=== PATIENT | female | born 1930 | race American Indian/Alaskan Native ===

== ENCOUNTER 2017-02-10 11:41 | Observation (INO) | payer MEDICARE, OTHER ==
[2017-02-10 11:56] VITALS: BMI 23.4
[2017-02-10] MEDS ORDERED: Sodium Chloride 0.9% 1,000 ML IV SCH (12:00)
[2017-02-10 12:15] LABS: URINE BILIRUBIN NEGATIVE (NEGATIVE); URINE BLOOD TRACE-INTACT (NEGATIVE); URINE GLUCOSE (UA) NEGATIVE (NEGATIVE); URINE LEUKOCYTE ESTERASE NEGATIVE Leu/uL (NEGATIVE); URINE NITRATE NEGATIVE (NEGATIVE); URINE PROTEIN NEGATIVE mg/dL (<30 mg/dL); URINE UROBILINOGEN 0.2 E.U./dL (<1 E.U./dL)
[2017-02-10 12:20] LABS: URINE APPEARANCE CLEAR (CLEAR); URINE COLOR STRAW (YELLOW)
[2017-02-10 12:24] LABS: URINE BACTERIA NEG (NEG); URINE EPITHELIAL CELLS 0 - 2 /hpf (0-5); URINE RBC 0 - 2 /hpf (0-2); URINE WBC NEGATIVE /hpf (0-6)
[2017-02-10 12:32] LABS: BASO # 0.02 K/mm3 (0.0-2.0); BASO % 0.4 % (0.0-3.0); EOS # 0.1 (0.0-0.7); EOS % 1.9 % (1.5-5.0); GRAN # 2.58 (1.4-6.5); GRAN % 48.4 % (50.0-68.0); LYMPH # 2.2 (1.2-3.4); MEAN CELL VOLUME 83.4 fL (80.0-105.0); MEAN CORPUSCULAR HEMOGLOBIN 27.3 pg (25.0-35.0); MEAN CORPUSCULAR HGB CONC 32.7 g/dl (31.0-37.0); MEAN PLATELET VOLUME 10.8 fl (7.0-11.0); MONO # 0.4 (0.1-0.6); MONO % 8.3 % (1.0-6.0); PLATELET COUNT 215 10^3/uL (120.0-450.0); RBC 4.77 10^6/uL (3.5-6.1); RED CELL DISTRIBUTION WIDTH 15.1 % (11.5-14.5); WHITE BLOOD COUNT 5.3 10^3/ul (4.5-11.0)
--- NOTE | 2017-02-10 12:37 | ED PDOC ---
Arrival/HPI - General Time Seen by Provider: 02/10/17 11:57 Historian: Patient - History of Present Illness Narrative History of Present Illness (Text): 02/10/17 12:19 A 86 year old female, whose past medical history includes hypertension and glaucoma, presents to the emergency department complaining of dizziness since this morning. Patient states that she has been experiencing intermittent dizziness at home since earlier this morning, and was afraid that she would fall down due to it. She lives alone at her home and recently to [place]. Patient notes she has been coughing, but denies of any fever, chills, nausea, vomiting, diarrhea, abdominal pain, chest pain, palpitations, shortness of breath, headaches, or any other complaints. PMD: Dr. Reeves Information Systems Consultant: Dr. Molina Time/Duration: Prior to Arrival Symptom Onset: Gradual Symptom Course: Intermittent Activities at Onset: Rest, Light Context: Home Past Medical History - Provider Review Nursing Documentation Reviewed: Yes - Cardiac Hx Cardiac Disorders: Yes Hx Hypertension: Yes - Neurological Hx Transient Ischemic Attacks (TIA): Yes - Musculoskeletal/Rheumatological Hx Falls: No - Psychiatric Hx Substance Use: No - Surgical History Hx Section: Yes - Anesthesia Hx Anesthesia: Yes Hx Anesthesia Reactions: No Hx Malignant Hyperthermia: No Family/Social History - Physician Review Nursing Documentation Reviewed: Yes Family/Social History: No Known Family HX Smoking Status: Former Smoker Hx Alcohol Use: Yes (Socially) Hx Substance Use: No Allergies/Home Meds Allergies/Adverse Reactions: Allergies No Known Allergies Allergy (Verified 02/10/17 16:54) Home Medications: Home Meds Medication Instructions Recorded Confirmed Valsartan [Diovan] 160 mg PO DAILY 02/10/16 02/10/17 Review of Systems - Physician Review All systems were reviewed & negative as marked: Yes - Review of Systems Constitutional: absent: Fevers, Night Sweats Respiratory: Cough. absent: SOB Cardiovascular: absent: Chest Pain, Palpitations Gastrointestinal: absent: Abdominal Pain, Diarrhea, Nausea, Vomiting Neurological: Dizziness (since this morning). absent: Headache Physical Exam Vital Signs Reviewed: Yes Vital Signs Temp Pulse Resp BP Pulse Ox 02/10/17 15:41 71 18 152/61 H 98 02/10/17 15:14 69 18 163/71 H 98 02/10/17 13:31 68 18 165/75 H 98 02/10/17 12:40 71 18 171/79 H 98 02/10/17 11:55 97.9 F 75 18 177/80 H 96 Temperature: Afebrile Blood Pressure: Hypertensive Pulse: Regular Respiratory Rate: Normal Appearance: Positive for: Well-Appearing Pain Distress: None Mental Status: Positive for: Alert and Oriented X 3 - Systems Exam Head: Present: Atraumatic, Normocephalic Pupils: Present: PERRL Extroacular Muscles: Present: EOMI Conjunctiva: Present: Normal Mouth: Present: Moist Mucous Membranes. No: Dry Neck: Present: Normal Range of Motion Respiratory/Chest: Present: Clear to Auscultation, Good Air Exchange. No: Respiratory Distress, Accessory Muscle Use Cardiovascular: Present: Regular Rate and Rhythm, Other (premature ventricular contractions) Abdomen: Present: Normal Bowel Sounds. No: Tenderness, Distention, Peritoneal Signs Back: Present: Normal Inspection Upper Extremity: Present: Normal Inspection. No: Cyanosis, Edema Lower Extremity: Present: Normal Inspection. No: Edema Neurological: Present: GCS=15, CN II-XII Intact, Speech Normal Skin: Present: Warm, Dry, Normal Color. No: Rashes Psychiatric: Present: Alert, Oriented x 3, Normal Insight, Normal Concentration Medical Decision Making ED Course and Treatment: 02/10/17 12:25 Impression: 86 year old female with dizziness. Physical exam shows premature ventricular contractions and moist mucous membranes. Plan: -- EKG -- Head CT -- Chest X-ray -- Labs -- Antivert -- IV Fluids -- Reassess and disposition Prior Visits: Notes and results from previous visits were reviewed. Patient was last seen in the emergency department on 03/16/2016 complaining of dark discoloration and tightness to her face prior to arrival. Patient was discharged home. Progress Notes: 02/10/2017 12:23 EKG: Ordered, reviewed, and independently interpreted the EKG. Rate : 76 BPM Rhythm : NSR Interpretation : Right bundle branch block, normal access with PAC Comparison : No previous EKG for comparison. 02/10/2017 12:[address] FINDINGS: HEMORRHAGE: No intracranial hemorrhage. BRAIN: Diffuse atrophy with prominence of the ventricles and sulci noted. No mass effect or edema. Intracranial atherosclerosis. 5 mm calcification noted along the right aspect of the anterior falx, favored to represent dural base calcification however incidental meningioma cannot be entirely excluded. Scattered periventricular and subcortical white matter hypodensities, which are nonspecific, but often seen with chronic microvascular ischemic disease. Please note that MRI with diffusion imaging is more sensitive in the detection of acute ischemic event. VENTRICLES: No hydrocephalus. CALVARIUM: Unremarkable. PARANASAL SINUSES: Unremarkable as visualized. No significant inflammatory changes. MASTOID AIR CELLS: Unremarkable as visualized. No inflammatory changes. OTHER FINDINGS: Postsurgical changes of the right globe. IMPRESSION: Generalized atrophy. Nonspecific white matter changes. 5 mm calcification noted along the right aspect of the anterior falx, favored to represent dural base calcification however incidental meningioma cannot be entirely excluded. 02/10/2017 12:58 Chest X-Ray FINDINGS: LUNGS: No active pulmonary disease. PLEURA: No significant pleural effusion identified, no pneumothorax apparent. CARDIOVASCULAR: Normal. OSSEOUS STRUCTURES: No significant abnormalities. VISUALIZED UPPER ABDOMEN: Normal. OTHER FINDINGS: None. IMPRESSION: No active disease. 02/10/17 13:[address] Reeves. Recommends patient be put into ED Observation. - Lab Interpretations Lab Results: 02/10/17 12:15 02/10/17 12:15 Lab Results 02/10/17 12:15: Sodium 139, Potassium 4.1, Chloride 98, Carbon Dioxide 32, Anion Gap 13, BUN 13, Creatinine 0.7, Est GFR ( Amer) > 60, Est GFR (Non- Af Amer) > 60, Random Glucose 81, Calcium 9.5, Magnesium 2.0, Total Bilirubin 0.6, AST 22, ALT 22, Alkaline Phosphatase 76, Lactate Dehydrogenase 489, Total Creatine Kinase 57, Troponin I < 0.01, Total Protein 7.3, Albumin 4.2, Globulin 3.0, Albumin/Globulin Ratio 1.4 02/10/17 12:15: PT 10.8, INR 1.00, APTT 25.1 02/10/17 12:15: WBC 5.3, RBC 4.77, Hgb 13.0, Hct 39.8, MCV 83.4, MCH 27.3, MCHC 32.7, RDW 15.1 H, Plt Count 215, MPV 10.8, Gran % 48.4 L, Lymph % (Auto) 41.0 H , [place] % (Auto) 8.3 H, Eos % (Auto) 1.9, Baso % (Auto) 0.4, Gran # 2.58, Lymph # 2.2, [place] # 0.4, Eos # 0.1, Baso # 0.02 02/10/17 12:00: Urine Color Straw, Urine Appearance Clear, Urine pH 7.0, Ur Specific [place] 1.010, Urine Protein Negative, Urine Glucose (UA) Negative, Urine Ketones Negative, Urine Blood Trace-intact H, Urine Nitrate Negative, Urine Bilirubin Negative, Urine Urobilinogen 0.2, Ur Leukocyte Esterase Negative , Urine RBC 0 - 2, Urine WBC Negative, Ur Epithelial Cells 0 - 2, Urine Bacteria Neg I have reviewed the lab results: Yes - RAD Interpretation Radiology Orders: 02/10/17 11:58 HEAD W/O CONTRAST [CT] Stat CHEST PORTABLE [RAD] Stat - Medication Orders Current Medication Orders: Losartan Potassium (Cozaar) 100 mg PO DAILY RUPA Meclizine HCl (Antivert) 25 mg PO Q6 PRN PRN Reason: Dizziness Discontinued Medications Sodium Chloride (Sodium Chloride 0.9%) 1,000 mls @ 100 mls/hr IV .Q10H RUPA Last Admin: 02/10/17 12:23 Dose: 100 mls/hr Meclizine HCl (Antivert) 25 mg PO STAT STA Stop: 02/10/17 11:59 Last Admin: 02/10/17 12:23 Dose: 25 mg Pneumococcal Polyvalent Vaccine (Pneumovax 23 Vaccine) 0.5 ml IM .ONCE ONE Stop: 02/10/17 19:18 - PA / LUMBER DRIVER / Resident Statement / has reviewed & agrees with the documentation as recorded. / has examined the patient and agrees with the treatment plan. - Scribe Statement Aston Reddy Provider Scribe Attestation: All medical record entries made by the Scribe were at my direction and personally dictated by me. I have reviewed the chart and agree that the record accurately reflects my personal performance of the history, physical exam, medical decision making, and the department course for this patient. I have also personally directed, reviewed, and agree with the discharge instructions and disposition. Disposition/Present on Arrival - Present on Arrival Any Indicators Present on Arrival: No History of DVT/PE: No History of Uncontrolled Diabetes: No Urinary Catheter: No History Surgical Site Infection Following: None - Disposition Have Diagnosis and Disposition been Completed?: Yes Diagnosis: Near syncope Disposition: HOSPITALIZED Disposition Time: 14:00 Patient Plan: Observation (Remote Telemetry) Condition: STABLE
[2017-02-10 12:42] LABS: PARTIAL THROMBOPLASTIN TIME 25.1 Seconds (23.7-30.8); PROTHROMBIN TIME 10.8 Seconds (9.9-11.8)
[2017-02-10 12:43] LABS: ALB/GLOB RATIO 1.4 (1.1-1.8); ALBUMIN 4.2 g/dL (3.0-4.8); ALT/SGPT 22 U/L (7-56); AST/SGOT 22 U/L (15-39); BLOOD UREA NITROGEN 13 mg/dL (7-21); CALCIUM 9.5 mg/dL (8.4-10.5); GFR AFRICAN-AMERICAN > 60; GFR NON-AFRICAN AMERICAN > 60
[2017-02-10 12:54] LABS: TROPONIN I < 0.01 ng/mL
--- NOTE | 2017-02-10 13:09 | CT ---
PROCEDURE: CT HEAD WITHOUT CONTRAST. HISTORY: r/o ICH COMPARISON: Noncontrast head CT performed 01/28/17 TECHNIQUE: Axial computed tomography images were obtained through the head/brain without intravenous contrast. Radiation dose: Total exam DLP = 712.01 mGy-cm. This CT exam was performed using one or more of the following dose reduction techniques: Automated exposure control, adjustment of the mA and/or kV according to patient size, and/or use of iterative reconstruction technique. FINDINGS: HEMORRHAGE: No intracranial hemorrhage. BRAIN: Diffuse atrophy with prominence of the ventricles and sulci noted. No mass effect or edema. Intracranial atherosclerosis. 5 mm calcification noted along the right aspect of the anterior falx, favored to represent dural base calcification however incidental meningioma cannot be entirely excluded. Scattered periventricular and subcortical white matter hypodensities, which are nonspecific, but often seen with chronic microvascular ischemic disease. Please note that MRI with diffusion imaging is more sensitive in the detection of acute ischemic event. VENTRICLES: No hydrocephalus. CALVARIUM: Unremarkable. PARANASAL SINUSES: Unremarkable as visualized. No significant inflammatory changes. MASTOID AIR CELLS: Unremarkable as visualized. No inflammatory changes. OTHER FINDINGS: Postsurgical changes of the right globe. IMPRESSION: Generalized atrophy. Nonspecific white matter changes. 5 mm calcification noted along the right aspect of the anterior falx, favored to represent dural base calcification however incidental meningioma cannot be entirely excluded.
--- NOTE | 2017-02-10 13:14 | RAD ---
HISTORY: r/o infiltrate COMPARISON: 02/10/2016 FINDINGS: LUNGS: No active pulmonary disease. PLEURA: No significant pleural effusion identified, no pneumothorax apparent. CARDIOVASCULAR: Normal. OSSEOUS STRUCTURES: No significant abnormalities. VISUALIZED UPPER ABDOMEN: Normal. OTHER FINDINGS: None. IMPRESSION: No active disease.
--- NOTE | 2017-02-10 17:25 | CARD ---
APPROVED REPORT EKG Measurement Heart [id number] <Conclusion> Sinus rhythm with premature supraventricular complexes Right bundle branch block Abnormal ECG
[2017-02-10] MEDS ORDERED: Pneumococcal 23-Valent Vaccine IM ONE (19:17)
[2017-02-11 06:00] VITALS: TEMP 98; O2SAT 98
[2017-02-11 16:43] VITALS: BP 124/59; PULSE 59; RESP 16
--- NOTE | 2017-02-12 08:22 | HP ---
HISTORY OF PRESENT ILLNESS: This is an 86-year-old female who is coming into the hospital with complaints of dizziness. The patient had a past medical history of hypertension and glaucoma. She states she has been dizzy in the morning prior to coming into the hospital. She has been experiencing intermittent dizziness. She was afraid that she may fall. She states she lives alone. She does have a son who is fully involved in her care. The patient states that she does feel better this morning. She has no compliant of chest pain. No shortness of breath. No nausea or vomiting. No abdominal pain. No back pain. No dysuria, frequency, or nocturia. She initially had a high blood pressure in the ER, but that had improved. All of review of symptoms within normal limits except as mentioned. ALLERGIES: NO KNOWN DRUG ALLERGIES. HOME MEDICATIONS: Diovan. SOCIAL HISTORY: She is a former smoker of half pack per day but states she quit many years ago. She denies alcohol. FAMILY HISTORY: Noncontributory. PAST MEDICAL HISTORY: Hypertension and dyslipidemia. PAST SURGICAL HISTORY: Hysterectomy, x3, and bilateral cataract surgery. PHYSICAL EXAMINATION: VITAL SIGNS: Temperature is 98, pulse of 59, blood pressure 124/69, respirations 16, O2 saturation is 98%, height is 5 feet, weight is 108 pounds, BMI is 21.1. GENERAL: The patient is lying in bed comfortable, in no acute distress. HEENT: Atraumatic, normocephalic. Anicteric sclerae. Moist mucosa. No oral lesions. No ulcers. NECK: No JVD, adenopathy, thyromegaly or bruits. HEART: S1 and S2 are regular. No murmurs, rubs, or gallops. LUNGS: Clear to auscultation bilaterally. No wheezes, rales, or rhonchi. ABDOMEN: Bowel sounds are positive. Soft, nontender, and nondistended. No hepatosplenomegaly. EXTREMITIES: No cyanosis, clubbing, or edema. NEUROLOGIC: No facial asymmetry. Tongue is midline. No uvula deviation. Power is 5/5 in the upper extremity and the lower extremity. Sensation is intact. PSYCHIATRIC: Alert, awake, and oriented x3. No facial asymmetry. Tongue is midline. Good insight. Normal affect. GENITOURINARY: No CVA tenderness. VASCULAR: 2+ pulses in the carotid and pedal pulses. SKIN: No erythema. No nodules. SPINE: Normal curvature. LABORATORY DATA: There is a white count of 5.3, hemoglobin of 13, platelets count is 315. INR is 1.0. Chemistry shows sodium 139, potassium 4.1, creatinine is 0.7, albumin is 4.2. Urine shows ketones are negative, nitrites are negative, bilirubin is negative. EKG shows sinus rhythm at 76 with right bundle-branch block. QTc is 447. Chest x-ray shows no acute disease. A CT of the head done shows generalized atrophy to the 5 cm calcification noted along the right aspect of the anterior falx. May represent incidental meningioma. ASSESSMENT: 1. Dizziness, unknown etiology, resolved. 2. Hypertension. 3. Dyslipidemia. PLAN: The patient was able to ambulate well. She initially has been placed on a dose of meclizine. She was discharged home to follow up as an outpatient. CONDITION: Stable. ACTIVITIES: Increase as tolerated. I did call the patient's son and left a message and updated him regarding the patient's plan of care. Zbigniew Johnson MD
== END 2017-02-11 18:45 | disposition home or self-care (01) ==
LOC: ED 11:41 → ERH 13:15 → 2RSO 15:48
PROVIDERS: ADMIT Internal Medicine Nephrology; ATTEND Internal Medicine Nephrology
DX: I49.3 Ventricular premature depolarization (principal); R42 Dizziness and giddiness; E78.5 Hyperlipidemia, unspecified; I10 Essential (primary) hypertension; H40.9 Unspecified glaucoma; Z86.73 Personal history of transient ischemic attack (TIA), and cerebral infarction without residual deficits; Z87.891 Personal history of nicotine dependence; R40.2412 Glasgow coma scale score 13-15, at arrival to emergency department; I45.10 Unspecified right bundle-branch block; Z90.710 Acquired absence of both cervix and uterus; Z68.21 Body mass index [BMI] 21.0-21.9, adult
CPT/HCPCS: 70450; 71010; 80053; 81001; 82550; 83615; 83735; 84484; 85025; 85610; 85730; 87086; 93005; 97116; 97162; 99285; G0378; G8978; G8979; G8980; J7040

== ENCOUNTER 2018-02-03 18:50 | Observation (INO) | payer MEDICARE, OTHER ==
--- NOTE | 2018-02-03 20:02 | ED PDOC ---
Arrival/HPI - General Chief Complaint: Syncope Time Seen by Provider: 02/03/18 19:16 Historian: Patient - History of Present Illness Narrative History of Present Illness (Text): 02/03/18 19:39 87 year old female, with past medical history of hypertension and hyperlipidemia , presents to the Emergency department for evaluation of syncopal episode 2 hours prior to arrival. Patient states she was home when she experienced worsening dizziness and passed out for a brief period of time, although patient does not recall exactly how long. Patient additionally informs associated palpitations prior but currently denies any palpitation or chest pain. Patient denies any head trauma, headache, incontinence, fever, chills, nausea, vomiting , diarrhea, abdominal pain, shortness of breath or any other complaints. Patient presents to the Emergency department for medical evaluation. Time/Duration: 1-3 hours Symptom Onset: Sudden Symptom Course: Improving Activities at Onset: Light Context: Home Past Medical History - Provider Review Nursing Documentation Reviewed: Yes - Infectious Disease Hx of Infectious Diseases: None - Cardiac Hx Cardiac Disorders: Yes Hx Hypertension: Yes - Pulmonary Hx Respiratory Disorders: Yes (SMOKES 1/2 PPD QUIT) - Neurological Hx Transient Ischemic Attacks (TIA): Yes - HEENT Hx HEENT Disorder: Yes (WEARS RX GLASSES) Hx Cataracts: Yes (BILATERAL CATARACT SX) Hx Glaucoma: Yes - Renal Hx Renal Disorder: No - Endocrine/Metabolic Hx Endocrine Disorders: No - Hematological/Oncological Hx Blood Disorders: No - Integumentary Hx Dermatological Disorder: No Other/Comment: BIRTHMARK RIGHT THIGH - Musculoskeletal/Rheumatological Hx Falls: No - Gastrointestinal Hx Gastrointestinal Disorders: No - Genitourinary/Gynecological Hx Genitourinary Disorders: Yes (HYSTERECTOMY,C/S X 3) - Psychiatric Hx Psychophysiologic Disorder: No Hx Substance Use: No - Surgical History Hx Section: Yes - Anesthesia Hx Anesthesia: Yes Hx Anesthesia Reactions: No Hx Malignant Hyperthermia: No Family/Social History - Physician Review Nursing Documentation Reviewed: Yes Family/Social History: No Known Family HX Smoking Status: Former Smoker Hx Alcohol Use: Yes (Socially) Hx Substance Use: No Allergies/Home Meds Allergies/Adverse Reactions: Allergies No Known Allergies Allergy (Verified 02/10/17 16:54) Home Medications: Home Meds Medication Instructions Recorded Confirmed Diltiazem HCl [Cardizem LA] 1 cap PO DAILY 02/03/18 02/03/18 Review of Systems - Physician Review All systems were reviewed & negative as marked: Yes - Review of Systems Constitutional: absent: Fevers Respiratory: absent: SOB Cardiovascular: absent: Chest Pain Gastrointestinal: absent: Abdominal Pain, Diarrhea, Nausea, Vomiting Neurological: Dizziness, Other (Syncope). absent: Headache Physical Exam Vital Signs Reviewed: Yes Vital Signs Temp Pulse Resp BP Pulse Ox 02/04/18 00:20 82 16 135/82 98 02/03/18 22:30 82 16 133/82 98 02/03/18 19:12 98.1 F 85 18 139/81 97 Temperature: Afebrile Blood Pressure: Normal Pulse: Regular Respiratory Rate: Normal Appearance: Positive for: Well-Appearing, Non-Toxic, Comfortable Pain Distress: None Mental Status: Positive for: Alert and Oriented X 3 - Systems Exam Head: Present: Atraumatic, Normocephalic Pupils: Present: PERRL Extroacular Muscles: Present: EOMI Conjunctiva: Present: Normal Neck: Present: Normal Range of Motion Respiratory/Chest: Present: Clear to Auscultation, Good Air Exchange. No: Respiratory Distress, Accessory Muscle Use Cardiovascular: Present: Regular Rate and Rhythm, Normal S1, S2. No: Murmurs Abdomen: No: Tenderness, Distention, Peritoneal Signs Back: Present: Normal Inspection Upper Extremity: Present: Normal Inspection. No: Cyanosis, Edema Lower Extremity: Present: Normal Inspection. No: Edema Neurological: Present: GCS=15, CN II-XII Intact, Speech Normal, Motor Func Grossly Intact, Normal Sensory Function Skin: Present: Warm, Dry, Normal Color. No: Rashes Psychiatric: Present: Alert, Oriented x 3, Normal Insight, Normal Concentration Medical Decision Making ED Course and Treatment: 02/03/18 19:39 Impression: 87 year old female presents to the Emergency department s/p syncopal episode. Differential Diagnosis included but are not limited to: syncope Plan: -- CT of head -- EKG -- Labs -- Chest X-ray -- Reassess and disposition Prior Visits: Notes and results from previous visits were reviewed. Progress Notes: 02/03/18 19:30 EKG: Ordered, reviewed, and independently interpreted the EKG. Rate : 81 BPM Rhythm : NSR Interpretation : RBBB. Septal infarct. Nonspecific ST/T wave changes. 07/19/18 22:30 Chest X-ray reviewed, shows no acute processes. 02/03/18 22:56 CT Head shows: BRAIN: Hypodensity within the deep white matter consistent with chronic small vessel ischemic disease. 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 No hemorrhage. VENTRICLES: Unremarkable. No ventriculomegaly. BONES/JOINTS: Unremarkable. No acute fracture. SOFT TISSUES: Unremarkable. SINUSES: Unremarkable as visualized. No acute sinusitis. MASTOID AIR CELLS: Unremarkable as visualized. No mastoid effusion. IMPRESSION: No acute findings. Atrophy with chronic white matter changes. 02/03/18 23:[address] Johnson, who is aware and agrees with plan. Accepts pt in to his service. Pt will go to Telemetry observation for syncope. Requests Dr. Harvey and Dr. Farfan on consult. - Lab Interpretations Lab Results: 02/03/18 19:41 02/03/18 19:41 Lab Results 02/03/18 19:41: WBC 5.9, RBC 4.68, Hgb 12.7, Hct 38.7, MCV 82.7, MCH 27.1, MCHC 32.8, RDW 14.8 H, Plt Count 199, MPV 10.0 02/03/18 19:41: Sodium 141, Potassium 3.9, Chloride 101, Carbon Dioxide 30, Anion Gap 15, BUN 10, Creatinine 0.7, Est GFR ( Amer) > 60, Est GFR (Non- Af Amer) > 60, Random Glucose 82, Calcium 9.6, Total Bilirubin 0.4, AST 25, ALT 23, Alkaline Phosphatase 80, Lactate Dehydrogenase 507, Total Creatine Kinase 60 , Troponin I < 0.01, Total Protein 7.0, Albumin 4.2, Globulin 2.8, Albumin/ Globulin Ratio 1.5 02/03/18 19:41: PT 11.6, INR 1.02, APTT 30.6 I have reviewed the lab results: Yes - RAD Interpretation Radiology Orders: 02/03/18 19:39 HEAD W/O CONTRAST [CT] Stat 02/03/18 19:40 CHEST PORTABLE [RAD] Stat Top Tile Decorator: Radiologist - EKG Interpretation Interpreted by ED Physician: Yes Type: 12 lead EKG - Scribe Statement The provider has reviewed the documentation as recorded by the Scribrosalia Sainz. All medical record entries made by the Scribe were at my direction and personally dictated by me. I have reviewed the chart and agree that the record accurately reflects my personal performance of the history, physical exam, medical decision making, and the department course for this patient. I have also personally directed, reviewed, and agree with the discharge instructions and disposition. Disposition/Present on Arrival - Present on Arrival Any Indicators Present on Arrival: No History of DVT/PE: No History of Uncontrolled Diabetes: No Urinary Catheter: No History of Decub. Ulcer: No History Surgical Site Infection Following: None - Disposition Have Diagnosis and Disposition been Completed?: Yes Diagnosis: Syncope Disposition: HOSPITALIZED Disposition Time: 23:14 Patient Plan: Observation Patient Problems: Current Active Problems Problem Status Onset Syncope Acute Condition: STABLE
[2018-02-03 20:26] LABS: HEMOGLOBIN 12.7 g/dL (12.0-16.0); MEAN CELL VOLUME 82.7 fl (80.0-105.0); MEAN CORPUSCULAR HEMOGLOBIN 27.1 pg (25.0-35.0); MEAN CORPUSCULAR HGB CONC 32.8 g/dl (31.0-37.0); RBC 4.68 10^6/uL (3.5-6.1); RED CELL DISTRIBUTION WIDTH 14.8 % (11.5-14.5); WHITE BLOOD COUNT 5.9 10^3/ul (4.5-11.0)
[2018-02-03 20:32] LABS: ALB/GLOB RATIO 1.5 (1.1-1.8); ALBUMIN 4.2 g/dL (3.0-4.8); ALT/SGPT 23 U/L (7-56); AST/SGOT 25 U/L (14-36); BLOOD UREA NITROGEN 10 mg/dL (7-21); CALCIUM 9.6 mg/dL (8.4-10.5); GFR AFRICAN-AMERICAN > 60; GFR NON-AFRICAN AMERICAN > 60
[2018-02-03 20:35] LABS: INR 1.02 (0.93-1.08); PARTIAL THROMBOPLASTIN TIME 30.6 Seconds (25.1-36.5); PROTHROMBIN TIME 11.6 SECONDS (9.4-12.5)
[2018-02-03 20:44] LABS: TROPONIN I < 0.01 ng/mL
[2018-02-04 02:53] VITALS: RESP 20; BMI 33.5
[2018-02-04 06:17] VITALS: O2SAT 99
--- NOTE | 2018-02-04 08:37 | RAD ---
Date of service: 02/03/2018 HISTORY: syncope COMPARISON: 02/10/2017 FINDINGS: LUNGS: No active pulmonary disease. PLEURA: No significant pleural effusion identified, no pneumothorax apparent. CARDIOVASCULAR: Normal. OSSEOUS STRUCTURES: No significant abnormalities. VISUALIZED UPPER ABDOMEN: Normal. OTHER FINDINGS: None. IMPRESSION: No active disease.
--- NOTE | 2018-02-04 08:52 | CT ---
Date of service: 02/03/2018 PROCEDURE: CT HEAD WITHOUT CONTRAST. HISTORY: syncope COMPARISON: 02/10/2017 TECHNIQUE: Axial computed tomography images were obtained through the head/brain without intravenous contrast. Radiation dose: Total exam DLP = 735 mGy-cm. This CT exam was performed using one or more of the following dose reduction techniques: Automated exposure control, adjustment of the mA and/or kV according to patient size, and/or use of iterative reconstruction technique. FINDINGS: HEMORRHAGE: No intracranial hemorrhage. BRAIN: No mass effect or edema. Mild chronic microvascular changes. Mild atrophy VENTRICLES: Unremarkable. No hydrocephalus. CALVARIUM: Unremarkable. PARANASAL SINUSES: Unremarkable as visualized. No significant inflammatory changes. MASTOID AIR CELLS: Unremarkable as visualized. No inflammatory changes. OTHER FINDINGS: The report concurs with the preliminary [facility] report IMPRESSION: No acute intracranial findings
[2018-02-04] MEDS ORDERED: DILTIAZEM HCL PO SCH (10:00)
[2018-02-04] MEDS ORDERED: diltiaZEM 120 mg/24 Hours CD Cap PO SCH (10:00)
--- NOTE | 2018-02-04 10:08 | CP.PCM.HP ---
<Ralhp Pineda - Last Filed: 02/04/18 15:04> History of Present Illness - History of Present Illness History of Present Illness: Medicine H&P for Dr. Johnson's service - Kraig Edwin PGY3 HPI: Patient is a 87yo female with past medical history of hypertension and hyperlipidemia that presented to [facility] [place] with c/o dizziness. She reported that approximately 2 hours prior to arrival in the ED, she began experiencing dizziness and sat down on her couch feeling as though she was about to pass out. She denied loss of consciousness, tongue biting, bowel/bladder incontinence. She reported that she has had similar episodes in the past for which she was previously given meclizine. She reports being very active, going to the gym and working with a personal coach. In the ED, CXR revealed no active disease, EKG revealed NSR with RBBB and nonspecific ST-T wave changes, septal infarct (age undetermined) and head CT showed no acute intracranial abnormalities. She denied chest pain, palpitations, SOB, abdominal pain, nausea , vomiting, fever, chills, cough, focal weakness, numbness, tingling, sick contacts. 12point ROS as per above otherwise negative PMH: as stated above PSH: x3, cataract surgery allergies: NKDA Social Hx: denies tobacco, alcohol, illicit drug use Family Hx: reviewed, noncontributory PMD: Dr. Johnson Present on Admission - Present on Admission Any Indicators Present on Admission: No Past Patient History - Infectious Disease Hx of Infectious Diseases: None - Past Social History Smoking Status: Former Smoker - CARDIAC Hx Cardiac Disorders: Yes Hx Hypertension: Yes - PULMONARY Hx Respiratory Disorders: Yes (SMOKES 1/2 PPD QUIT) - NEUROLOGICAL Hx Transient Ischemic Attacks (TIA): Yes - HEENT Hx HEENT Problems: Yes (WEARS RX GLASSES) Hx Cataracts: Yes (BILATERAL CATARACT SX) Hx Glaucoma: Yes - RENAL Hx Chronic Kidney Disease: No - ENDOCRINE/METABOLIC Hx Endocrine Disorders: No - HEMATOLOGICAL/ONCOLOGICAL Hx Blood Disorders: No - INTEGUMENTARY Hx Dermatological Problems: No Other/Comment: BIRTHMARK RIGHT THIGH - MUSCULOSKELETAL/RHEUMATOLOGICAL Hx Falls: No - GASTROINTESTINAL Hx Gastrointestinal Disorders: No - GENITOURINARY/GYNECOLOGICAL Hx Genitourinary Disorders: Yes (HYSTERECTOMY,C/S X 3) - PSYCHIATRIC Hx Psychophysiologic Disorder: No Hx Substance Use: No - SURGICAL HISTORY Hx Section: Yes - ANESTHESIA Hx Anesthesia: Yes Hx Anesthesia Reactions: No Hx Malignant Hyperthermia: No Meds Allergies/Adverse Reactions: Allergies Allergy/AdvReac Type Severity Reaction Status Date / Time No Known Allergies Allergy Verified 02/10/17 16:54 Physical Exam - Constitutional Appears: No Acute Distress - Head Exam Head Exam: ATRAUMATIC, NORMAL INSPECTION, NORMOCEPHALIC - Eye Exam Eye Exam: EOMI, PERRL - ENT Exam ENT Exam: Mucous Membranes Moist - Neck Exam Neck exam: Positive for: Normal Inspection - Respiratory Exam Respiratory Exam: Clear to Auscultation Bilateral. absent: Rales, Rhonchi, Wheezes - Cardiovascular Exam Cardiovascular Exam: RRR, +S1, +S2. absent: Clicks, Gallop, JVD, Rubs - GI/Abdominal Exam GI & Abdominal Exam: Normal Bowel Sounds, Soft. absent: Distended, Firm, Guarding, Rigid, Tenderness - Extremities Exam Extremities exam: Positive for: normal inspection. Negative for: pedal edema - Neurological Exam Neurological exam: Alert, CN II-XII Intact, Oriented x3 - Psychiatric Exam Psychiatric exam: Normal Affect, Normal Mood - Skin Skin Exam: Dry, Intact, Normal Color, Warm Results - Vital Signs Recent Vital Signs: Last Vital Signs Temp 97.8 F 02/04/18 06:00 Pulse 71 02/04/18 06:00 Resp 20 02/04/18 06:00 BP 158/70 H 02/04/18 06:00 Pulse Ox 99 02/04/18 06:00 - Labs Result Diagrams: 02/03/18 19:41 02/03/18 19:41 Assessment & Plan - Assessment and Plan (Free Text) Plan: 87yo female with history of hypertension, hyperlipidemia presents with pre- syncope/dizziness 1. Pre-syncope/dizziness 2. Hx of hypertension 3. Hx of hyperlipidemia -EKG reviewed; revealed NSR with septal infarct (age undetermined), RBBB -CXR revealed no active disease -Head CT revealed no acute intracranial abnormalities -Neurology and cardiology have been consulted -Carotid doppler reviewed; revealed 20-39% ICA stenosis and antegrade flow in both vertebral arteries -Echocardiogram completed -Spoke to the patient's son, Talib and notified him of the present results/plan -Telemetry monitoring -Heart healthy diet -Patient is to be discharged with instructions to follow up with her primary doctor, Dr. Johnson within 1 week of discharge as well as cardiology, Dr. Harvey within 1 week of discharge -Patient is agreeable to discharge and discussed plan with her son, Talib. They are agreeable to outpatient follow up. Patient seen and case discussed/reviewed with attending, Dr. Johnson <Zbigniew Johnson - Last Filed: 02/06/18 08:29> Results - Vital Signs Recent Vital Signs: Last Vital Signs Temp 98.3 F 02/04/18 12:00 Pulse 70 02/04/18 14:00 Resp 20 02/04/18 12:00 BP 150/69 02/04/18 12:00 Pulse Ox 99 02/04/18 06:00 - Labs Result Diagrams: 02/03/18 19:41 02/03/18 19:41 Assessment & Plan - Assessment and Plan (Free Text) Plan: Pt seen and examined. This is a late entry. I have reviewed the note of the medical records technician and agree with it. I have discussed the assessment and plan with the resident. I have reviewed the patient's labs and medications. Pt did not have a syncopal episode. She remembers the event and said she was dizzy. She had a catotid US that was reviewed as well as the echo results. She will be followed up as an out-pt. She is very active.
--- NOTE | 2018-02-04 11:04 | CARD ---
APPROVED REPORT Date of service: 02/03/2018 EKG Measurement Heart [id number] <Conclusion> Normal sinus rhythm Right bundle branch block Septal infarct, age undetermined Abnormal ECG
[2018-02-04 14:12] VITALS: BP 150/69; TEMP 98.3
--- NOTE | 2018-02-04 14:24 | CON ---
DATE: 02/04/2018 REASON FOR CONSULTATION AND FOLLOWUP: Syncope, cardiac evaluation, near syncope. BRIEF CLINICAL HISTORY: An 87-year-old female with a past medical history significant for hypertension, hyperlipidemia, presented to the Emergency Room complaining of dizziness; on standing, feels that she is going to pass out, everything is getting dizzy, but no history of loss of consciousness, no history of fall. No history of chest pain. No history of shortness of breath. No history of palpitations. PAST MEDICAL HISTORY: Significant for hypertension. Previous cardiac workup as follows: Patient had echocardiography done on 01/24/2014 that revealed LVH with good LV function, dilated LA and RA, mild MR, mild TR, aortic sclerosis, aortic stenosis, RVSP 34, calculated ejection fraction 63% dated 01/24/2014. Patient had a stress test myocardial perfusion study on 08/15/2015 that showed normal myocardial perfusion, ejection fraction 81%. REVIEW OF SYSTEMS: As per HPI. CURRENT MEDICATIONS: Cardizem CD. PHYSICAL EXAMINATION: VITAL SIGNS: Height 4 feet 11 inches, weight of 110 pounds, body mass index 22 kg/m2. Rest of the vitals: Temperature afebrile, heart rate 71, blood pressure 158/70. HEENT: PERRLA. Extraocular muscles are intact. NECK: Supple. No carotid bruits. No thyromegaly. CHEST: Clear to auscultation. HEART: S1 and S2 regular. ABDOMEN: Soft. EXTREMITIES: Clubbing and cyanosis negative. LABORATORY DATA: Blood workup as follows: WBC 5.9, hemoglobin 12.3, hematocrit 38.7 and platelet count 199. Chemistries shows sodium 141, potassium 3.9, chloride 101, carbon dioxide 30, anion gap of 15, BUN 10, creatinine 0.7. Troponin is 0.01 negative. EKG shows normal sinus, right bundle branch and left anterior hemiblock. IMPRESSION: An 87-year-old female with past medical history of hypertension, admitted with complaints of dizziness. No history of loss of consciousness. No history of chest pain. No history of dyspnea on exertion. RECOMMENDATIONS: We will do carotid Duplex, echo to assess aortic stenosis, rule out any structural heart disease. Maybe we can consider stress test as an outpatient for risk stratification. Lipid profile, TSH, hemoglobin A1c. We will follow with you. We will get a bilateral carotid Duplex as well. We will do orthostatic hypotension. Check the blood pressure in sitting, standing and lying. Further recommendation will be made after the initial workup. Thank you for Dr. Johnson, for providing us the opportunity in taking care of Saranya Singh. Riley Harvey MD
--- NOTE | 2018-02-04 14:25 | US ---
PROCEDURE: Bilateral carotid artery duplex ultrasound HISTORY: Carotid stenosis syncope PHYSICIAN(S): Diomedes Ruff MD. TECHNIQUE: Duplex sonography and color-flow Doppler were used to evaluate the carotid bifurcations and limited segments of the vertebral arteries bilaterally. FINDINGS: There is mild to moderate smooth heterogeneous echogenic plaque noted at the carotid bifurcations bilaterally. The peak systolic velocity in the proximal right internal carotid artery is 67 cm/sec. This corresponds to a 20 to 39% proximal right ICA stenosis. Normal systolic velocities are noted in the proximal right external carotid artery. There is antegrade flow in the right vertebral artery. The peak systolic velocity in the proximal left internal carotid artery is 73 cm/sec. This corresponds to a 20 to 39% proximal left ICA stenosis. Normal systolic velocities are noted in the proximal left external carotid artery. There is antegrade flow in the left vertebral artery. IMPRESSION: 1. Bilateral 20-39% proximal ICA stenoses. 2. Antegrade flow in both vertebral arteries.
[2018-02-04 14:53] VITALS: PULSE 70
--- NOTE | 2018-02-04 17:10 | CARD ---
APPROVED REPORT Date of service: 02/04/2018 EXAM: Two-dimensional and M-mode echocardiogram with Doppler and color Doppler. INDICATION Chest Pain LVFX 2D DIMENSIONS Left Atrium (2D)4.4 (1.6-4.0cm)IVSd1.1 (0.7-1.1cm) LVDd3.5 (3.9-5.9cm)PWd1.1 (0.7-1.1cm) LVDs2.2 (2.5-4.0cm)FS (%) 38.1 % LVEF (%)69.4 (>50%) M-Mode DIMENSIONS Aortic Root2.80 (2.2-3.7cm)Aortic Cusp Exc.1.30 (1.5-2.0cm) Aortic Valve AoV Peak Fohzfthn561.0cm/Makayla Peak GR.9mmHgLVOT Peak Ufffxgxy286.0cm/s LVOT VTI29.10cm Mitral Valve MV E Zxmuywcw242.0cm/sMV A Cehnesun300.0cm/sMV ADS31um E/A ratio0.8MVA (PHT)2.75cm2 TDI Lateral E' Peak V4.39cm/sMedial E' Peak V6.04cm/sE/Lateral E'24.6 E/Medial E'17.9 Pulmonary Valve PV Peak Qanvzstl377.0cm/sPV Peak Grad.5mmHg Tricuspid Valve TR Peak Rvmjvkkc162zt/sRAP [id number] Peak Gr.25mmHg [id number] LEFT VENTRICLE The left ventricle is normal size. There is normal left ventricular wall thickness. The left ventricular function is normal.EF-65% There is normal LV segmental wall motion. Transmitral Doppler flow pattern is Grade III-reversible restrictive diastolic dysfunction. No left ventricle thrombus noted on this study. There is no ventricular septal defect visualized. There is no left ventricular aneurysm. There is no mass noted in the left ventricle. RIGHT VENTRICLE The right ventricle is normal size. There is normal right ventricular wall thickness. The right ventricular systolic function is normal. ATRIA The left atrium is mildly dilated. The right atrium size is normal. The interatrial septum is intact with no evidence for an atrial septal defect. AORTIC VALVE The aortic valve is calcified and displays decreased opening. The aortic valve is moderately sclerotic. No aortic regurgitation is present. Aortic sclerosis Vs Mild There is no aortic valvular vegetation. MITRAL VALVE The mitral valve is thickened but opens well. Mitral annular calcification is moderate. Mitral regurgitation is trace to mild. There is no mitral valve stenosis. There is no evidence of mitral valve prolapse. TRICUSPID VALVE The tricuspid valve leaflets are thickened , but open well. There is mild tricuspid regurgitation.RVSP-35 mmof Hg. There is no tricuspid valve stenosis. There is no tricuspid valve prolapse or vegetation. PULMONIC VALVE The pulmonic valve is mildly thickened. There is trace to mild pulmonic valvular regurgitation. There is no pulmonic valvular stenosis. GREAT VESSELS The aortic root is normal in size. The ascending aorta is normal in size. The pulmonary artery is normal. The IVC is normal in size and collapses >50% with inspiration. PERICARDIAL EFFUSION There is no pleural effusion. There is no pericardial effusion. <Conclusion> The left ventricle is normal size. There is normal left ventricular wall thickness. The left ventricular function is normal.EF-65% Aortic sclerosis Vs Mild Mitral regurgitation is trace to mild. There is mild tricuspid regurgitation.RVSP-35 mmof Hg. There is trace to mild pulmonic valvular regurgitation. There is no pericardial effusion.
== END 2018-02-04 17:29 | disposition home or self-care (01) ==
LOC: ED 18:50 → ERH 23:12 → 2RNO 02-04 00:39
PROVIDERS: ADMIT Internal Medicine Nephrology; ATTEND Internal Medicine Nephrology
DX: I08.3 Combined rheumatic disorders of mitral, aortic and tricuspid valves (principal); E78.5 Hyperlipidemia, unspecified; I10 Essential (primary) hypertension; Z86.73 Personal history of transient ischemic attack (TIA), and cerebral infarction without residual deficits; H40.9 Unspecified glaucoma; Z87.891 Personal history of nicotine dependence; Z90.710 Acquired absence of both cervix and uterus
CPT/HCPCS: 36415; 70450; 71045; 80053; 82550; 82948; 83036; 83615; 84443; 84484; 85027; 85610; 85730; 93005; 93306; 93880; 99285; G0378

== ENCOUNTER 2018-08-23 21:14 | Inpatient (IN) | payer MEDICARE, OTHER ==
[2018-08-23 21:18] VITALS: BMI 22.1
[2018-08-23] MEDS: Sodium Chloride 0.9% 1,000 ML IV SCH (21:50)
--- NOTE | 2018-08-23 21:53 | EDPD ---
HPI Stroke - General Time Seen by Provider: 08/23/18 21:15 Chief Complaint: Weakness/Neurological Deficit Historian: Patient - History of Present Illness Narrative History of Present Illness (Free Text): 08/23/18 21:46 87 year old female, whose past medical history includes hypertension, hyperlipidemia,TIA on Cardizem and Valsartan, presents to the emergency department by EMS for possible stroke. Patient's son states he spoke to her earlier in the night and she appeared to be speaking slow. Son states she appeared to be a bit confused. Son states he noted in her pill box that she may have taken an extra day worth of her anti-hypertension medication, and called EMS. Upon arrival, EMS noted patient had some left sided facial droop. Son states he is unsure if this is a prior condition, or new symptom as he felt he had noticed this before.Unclear as to its start. Son informs patient was ambulating without difficulty, and did not appear to have any focal weakness. Patient denies any headache, chest pain, shortness of breath, back pain, neck pain, or any other complaint. Onset:: Just prior to presenting Context: Home rTPA Inclusion/Exclusion - Refusal of Treatment Patient Refused Treatment: No - Inclusion Criteria for Altepase Patient is 18 years or Older: Yes The Clinical Diagnosis of Ischemic Stroke That is Causing a Potentially Disabling Neurological Deficit: No Time of Onset is Well Established to be Less Than 270 Minute Before Treatment Would Begin: No Risk/Benefit Discussed With Patient/Family Member Present: Yes - Exclusion Criteria for Altepase Uncontrolled Hypertension at Time of Treatment (Systolic BP above 185 or Diastolic BP above 110 mmHg): No Active Internal Bleeding: No Known Bleeding Diathesis Including but Not Limited to: Platelets Below 100,000/mm,PTT Above 40 sec After Heparin Use, Current Use of Oral Anitcoagulant With INR Greater Than 1.7 or PT Greater Than 15 secs: No Evidence of an Intracranial Hemorrhage: No Evidence of Major Acute Infarct With Signs Greater Than 1/3 MCA Territory: No Suspicion of Subarachnoid Hemorrhage on Pretreatment Evaluation Even if CT Head Negative For Hemorrhage: No - Warning to TPA With Conditions Following Conditions Weighed Against Anticipated Benefit: Yes Condition: Stroke Serevity Too Mild Additional Condition (For 3-4.5 Hour Window): Age Greater Than 80 Past Medical History - Provider Review Nursing Documentation Reviewed: Yes - Infectious Disease Hx of Infectious Diseases: None - Cardiac Hx Cardiac Disorders: Yes Hx Hypertension: Yes - Pulmonary Hx Respiratory Disorders: Yes (SMOKES 1/2 PPD QUIT) - Neurological Hx Transient Ischemic Attacks (TIA): Yes - HEENT Hx HEENT Disorder: Yes (WEARS RX GLASSES) Hx Cataracts: Yes (BILATERAL CATARACT SX) Hx Glaucoma: Yes - Renal Hx Renal Disorder: No - Endocrine/Metabolic Hx Endocrine Disorders: No - Hematological/Oncological Hx Blood Disorders: No - Integumentary Hx Dermatological Disorder: No Other/Comment: BIRTHMARK RIGHT THIGH - Musculoskeletal/Rheumatological Hx Falls: No - Gastrointestinal Hx Gastrointestinal Disorders: No - Genitourinary/Gynecological Hx Genitourinary Disorders: Yes (HYSTERECTOMY,C/S X 3) - Psychiatric Hx Psychophysiologic Disorder: No Hx Substance Use: No - Surgical History Hx Section: Yes - Anesthesia Hx Anesthesia: Yes Hx Anesthesia Reactions: No Hx Malignant Hyperthermia: No Allergies/Home Meds Allergies/Adverse Reactions: Allergies No Known Allergies Allergy (Verified 08/23/18 21:18) Home Medications: Home Meds Medication Instructions Recorded Confirmed Diltiazem HCl [Cardizem LA] 1 cap PO DAILY 02/03/18 02/03/18 Review of Systems - Physician Review All systems were reviewed & negative as marked: Yes - Review of Systems Respiratory: absent: SOB Cardiovascular: absent: Chest Pain Musculoskeletal: absent: Back Pain, Neck Pain Neurological: Speech Changes (slow speach), Facial Droop (Possible). absent: Headache ED Stroke Physical Exam Vital Signs Reviewed: Yes Vital Signs Temp Pulse Resp BP Pulse Ox 08/23/18 21:23 98.1 F 69 16 156/83 H 98 Temperature: Afebrile Blood Pressure: Hypertensive Pulse: Regular Respiratory Rate: Normal Appearance: Positive for: Well-Appearing, Non-Toxic, Comfortable Pain Distress: None Mental Status: Positive for: Alert and Oriented X 3 Finger Stick Blood Glucose: 100 - Systems Exam Head: Present: Atraumatic, Normocephalic Pupils: Present: PERRL Extroacular Muscles: Present: EOMI Conjunctiva: Present: Normal Mouth: Present: Moist Mucous Membranes Neck: Present: Normal Range of Motion Respiratory/Chest: Present: Clear to Auscultation, Good Air Exchange. No: Respiratory Distress, Accessory Muscle Use Cardiovascular: Present: Regular Rate and Rhythm, Normal S1, S2. No: Murmurs Abdomen: Present: Normal Bowel Sounds. No: Tenderness, Distention, Peritoneal Signs Genitourinary/Pelvic Exam: Present: NI. No: C, E Back: Present: GCS, CN, SP Upper Extremity: Present: Normal Inspection. No: Cyanosis, Edema Lower Extremity: Present: Normal Inspection. No: Edema Neurologic: Present: Motor Func Grossly Intact, Normal Sensory Function, Facial Droop (Mild left facial droop, with sparing of the frontalis muscle) Skin: Present: Warm, Dry, Normal Color. No: Rashes Lymphatic: Present: OX3, NI, NC Psychiatric: Present: Alert, Oriented x 3, Normal Insight, Normal Concentration Medical Decision Making ED Course and Treatment: 08/23/18 21:56 Impression: 87 year old female presents for possible stroke. Plan: -- Code Stroke -- CT Head -- EKG -- CMP, Chemistry -- CBC, Platelets -- Chest X-ray -- Reassess and disposition Prior Visits: Notes and results from previous visits were reviewed. Progress Notes: EKG reviewed by me, shows: Normal sinus rhythm @ 72bpm RBBB, nonspecific STT changes 08/23/18 22:07 CT Head without Intravenous Contrast. CLINICAL HISTORY: CODE STROKE TECHNIQUE: Axial computed tomography images of the head/brain without intravenous contrast. 773.57 mGy-cm COMPARISON: None provided. FINDINGS: BRAIN Chronic periventricular and subcortical microvascular disease is seen. VENTRICLES: There is generalized parenchymal atrophy noted as demonstrated by symmetrical dilatation of ventricles and sulci. ORBITS: The orbits are unremarkable. SINUSES AND MASTOIDS: The paranasal sinuses and mastoid air cells are clear. BONES: No fracture. SOFT TISSUES: Unremarkable. MISCELLANEOUS: No acute intracranial pathology. IMPRESSION: 1. There is generalized parenchymal atrophy noted as demonstrated by symmetrical dilatation of ventricles and sulci. 2. Chronic periventricular and subcortical microvascular disease is seen. 3. No acute intracranial pathology. 08/23/18 22:[address] Bernabe who recommends aspirin only at this time, and MRI of the brain to follow on this admission. 08/23/18 22:[address] Johnson who accepts patient to his service. - RAD Interpretation Radiology Orders: 08/23/18 21:20 HEAD W/O (CODE STROKE) [CT] Stat CHEST PORTABLE [RAD] Stat - Medication Orders Current Medication Orders: Sodium Chloride (Sodium Chloride 0.9%) 1,000 mls @ 100 mls/hr IV .Q10H RUPA - Scribe Statement The provider has reviewed the documentation as recorded by the Scribrosalia Ponce Provider Scribe Attestation: All medical record entries made by the Scribe were at my direction and personally dictated by me. I have reviewed the chart and agree that the record accurately reflects my personal performance of the history, physical exam, medical decision making, and the department course for this patient. I have also personally directed, reviewed, and agree with the discharge instructions and disposition. NIHSS Scale ([place]) Time Performed: 21:15 - How Severe is the Stoke Baseline Level of Consciousness: 0=Alert LOC to Questions: 0=Both comments correct LOC to commands: 0=Obeys both correctly Best Gaze: 0=Normal Visual: 0=No visual loss Facial: 2=Partial (lower face paralysis) Motor Arm - Left: 0=No drift Motor Arm - Right: 0=No drift Motor Leg - Left: 0=No drift Motor Leg - Right: 0=No drift Limb Ataxia: 0=Absent Sensory: 0=Normal Best Language: 0=No aphasia Dysarthia: 0=Normal articulation Extinction & Inattention (Neglect): 0=Normal, no object Score: 2 Risk Level: Minor Stroke Risk Disposition/Present on Arrival - Present on Arrival Any Indicators Present on Arrival: No History of DVT/PE: No History of Uncontrolled Diabetes: No Urinary Catheter: No History of Decub. Ulcer: No History Surgical Site Infection Following: None - Disposition Have Diagnosis and Disposition been Completed?: Yes Diagnosis: CVA (cerebral vascular accident) Disposition: HOSPITALIZED Disposition Time: 22:43 Patient Plan: Admission Condition: STABLE Referrals: Zbigniew Johnson MD [Primary Care Provider] - Follow up with primary Forms: [employer] (French)
[2018-08-23 21:54] LABS: BASO # 0.01 K/mm3 (0.0-2.0); BASO % 0.2 % (0.0-3.0); EOS # 0.1 (0.0-0.7); EOS % 0.8 % (1.5-5.0); HEMOGLOBIN 12.6 g/dL (12.0-16.0); LYMPH # 2.6 (1.2-3.4); LYMPH % 40.5 % (22.0-35.0); MEAN CELL VOLUME 84.8 fl (80.0-105.0); MEAN CORPUSCULAR HGB CONC 31.8 g/dl (31.0-37.0); MEAN PLATELET VOLUME 10.7 fl (7.0-11.0); MONO # 0.4 (0.1-0.6); MONO % 6.6 % (1.0-6.0); RBC 4.67 10^6/uL (3.5-6.1); RED CELL DISTRIBUTION WIDTH 14.7 % (11.5-14.5); WHITE BLOOD COUNT 6.5 10^3/uL (4.5-11.0)
[2018-08-23 22:05] LABS: INR 1.06; PARTIAL THROMBOPLASTIN TIME 31.2 Seconds (26.9-38.3); PROTHROMBIN TIME 11.8 SECONDS (9.4-12.5)
[2018-08-23 22:09] LABS: ALB/GLOB RATIO 1.4 (1.1-1.8); ALBUMIN 4.4 g/dL (3.0-4.8); AST/SGOT 35 U/L (14-36); BLOOD UREA NITROGEN 13 mg/dL (7-21); CALCIUM 9.3 mg/dL (8.4-10.5); GFR NON-AFRICAN AMERICAN > 60; HDL CHOLESTEROL 72 mg/dL (29-60)
[2018-08-23 22:15] LABS: ALT/SGPT < 6 U/L (7-56)
[2018-08-23 22:20] LABS: LDL CHOLESTEROL 89 mg/dL (0-129); TROPONIN I < 0.01 ng/mL
[2018-08-23] MEDS ORDERED: Sodium Chloride 0.9% 1,000 ML IV STA (22:43)
[2018-08-24] MEDS: Sodium Chloride 0.9% 1,000 ML IV SCH (09:00)
--- NOTE | 2018-08-24 09:25 | CT ---
Date of service: 08/23/2018 PROCEDURE: CT HEAD WITHOUT CONTRAST. HISTORY: Code Stroke COMPARISON: 02/03/2018 TECHNIQUE: Axial computed tomography images were obtained through the head/brain without intravenous contrast. Radiation dose: Total exam DLP = 773.57 mGy-cm. This CT exam was performed using one or more of the following dose reduction techniques: Automated exposure control, adjustment of the mA and/or kV according to patient size, and/or use of iterative reconstruction technique. FINDINGS: HEMORRHAGE: No intracranial hemorrhage. BRAIN: No mass effect or edema. Chronic microvascular changes are seen in the periventricular white matter and basal ganglia bilaterally. No acute findings. Mild atrophy VENTRICLES: Unremarkable. No hydrocephalus. CALVARIUM: Unremarkable. PARANASAL SINUSES: Unremarkable as visualized. No significant inflammatory changes. MASTOID AIR CELLS: Unremarkable as visualized. No inflammatory changes. OTHER FINDINGS: None. IMPRESSION: Chronic microvascular changes are seen in the periventricular white matter and basal ganglia bilaterally. No acute findings. Mild atrophy
--- NOTE | 2018-08-24 09:47 | CARD ---
APPROVED REPORT Date of service: 08/23/2018 EKG Measurement Heart [id number] <Conclusion> Normal sinus rhythm Right bundle branch block Abnormal ECG
--- NOTE | 2018-08-24 10:08 | MRI ---
Date of service: 08/24/2018 PROCEDURE: MRI BRAIN WITHOUT CONTRAST HISTORY: CVA COMPARISON: None available. TECHNIQUE: Multiplanar, multisequence MR images of the brain were obtained without intravenous contrast enhancement. FINDINGS: HEMORRHAGE: None DWI: No evidence of an acute or early subacute infarction. BRAIN PARENCHYMA: No mass effect or edema. Severe chronic microvascular changes are seen in the periventricular and deep white matter VENTRICLES: Unremarkable. No hydrocephalus. CRANIUM: Unremarkable. ORBITS: Grossly unremarkable. PARANASAL SINUSES/MASTOIDS: Clear VASCULAR SYSTEM: Skull base flow voids intact. OTHER FINDINGS: None. IMPRESSION: Severe chronic microvascular changes are seen in the periventricular and deep white matter No acute intracranial findings
--- NOTE | 2018-08-24 10:54 | RAD ---
Date of service: 08/23/2018 HISTORY: Code Stroke COMPARISON: 02/03/2018 FINDINGS: LUNGS: No active pulmonary disease. PLEURA: No significant pleural effusion identified, no pneumothorax apparent. CARDIOVASCULAR: Aortic calcification Normal cardiac size. No pulmonary vascular congestion. OSSEOUS STRUCTURES: No significant abnormalities. VISUALIZED UPPER ABDOMEN: Normal. OTHER FINDINGS: None. IMPRESSION: No active disease.
--- NOTE | 2018-08-24 11:32 | CP.PCM.HP ---
<Britt Patterson - Last Filed: 08/24/18 15:54> History of Present Illness - History of Present Illness History of Present Illness: 87yo female PMHx CVA with residual L sided weakness, TIA, vertigo, HTN, HLD, glaucoma presented to [facility] [place] with complaints of dizziness. Patient reports she has had similar complaints in the past. She stated the dizziness began 2 days ago but worsened and so she decided to come in. She reported feeling like she was almost going to fall when ambulating and she called her son who told her to go to the ER. Patient denied any LOC, hitting her head, fall/trauma. She denied any fever, chills, headache, dizziness, chest pain, palpitations, SOB, cough, abd pain, nausea, vomiting, bowel/bladder complaints, swelling in her legs b/l. She does complain of some pain in her legs b/l that she attributes to arthritis. 12point ROS as per above otherwise negative PMH: CVA with residual L sided weakness, TIA, vertigo, HTN, HLD, glaucoma PSH: hysterectomy, x3, cataract surgery allergies: NKDA Social Hx: denies tobacco [prior use 1/2ppd but quit years ago], drinkes EtOH socially, denies illicit drug use; lives alone, ambulates with no assistance, and completes all ADLs. Family Hx: reviewed, noncontributory PMD: Dr. Johnson Present on Admission - Present on Admission Any Indicators Present on Admission: No Review of Systems - Review of Systems All systems: reviewed and no additional remarkable complaints except Review of Systems: as per HPI Past Patient History - Infectious Disease Hx of Infectious Diseases: None - Past Social History Smoking Status: Former Smoker - CARDIAC Hx Cardiac Disorders: Yes Hx Hypertension: Yes - PULMONARY Hx Respiratory Disorders: Yes (SMOKES 1/2 PPD QUIT) - NEUROLOGICAL Hx Transient Ischemic Attacks (TIA): Yes - HEENT Hx HEENT Problems: Yes (WEARS RX GLASSES) Hx Cataracts: Yes (BILATERAL CATARACT SX) Hx Glaucoma: Yes - RENAL Hx Chronic Kidney Disease: No - ENDOCRINE/METABOLIC Hx Endocrine Disorders: No - HEMATOLOGICAL/ONCOLOGICAL Hx Blood Disorders: No - INTEGUMENTARY Hx Dermatological Problems: No Other/Comment: BIRTHMARK RIGHT THIGH - MUSCULOSKELETAL/RHEUMATOLOGICAL Hx Falls: No - GASTROINTESTINAL Hx Gastrointestinal Disorders: No - GENITOURINARY/GYNECOLOGICAL Hx Genitourinary Disorders: Yes (HYSTERECTOMY,C/S X 3) - PSYCHIATRIC Hx Psychophysiologic Disorder: No Hx Substance Use: No - SURGICAL HISTORY Hx Section: Yes - ANESTHESIA Hx Anesthesia: Yes Hx Anesthesia Reactions: No Hx Malignant Hyperthermia: No Meds Allergies/Adverse Reactions: Allergies Allergy/AdvReac Type Severity Reaction Status Date / Time No Known Allergies Allergy Verified 08/24/18 12:24 Physical Exam - Constitutional Appears: Non-toxic, No Acute Distress - Head Exam Head Exam: ATRAUMATIC, NORMAL INSPECTION, NORMOCEPHALIC - Eye Exam Eye Exam: EOMI, Normal appearance. absent: Conjunctival injection, Scleral icterus Pupil Exam: PERRL - ENT Exam ENT Exam: Mucous Membranes Moist - Neck Exam Neck exam: Positive for: Normal Inspection. Negative for: Lymphadenopathy - Respiratory Exam Respiratory Exam: Clear to Auscultation Bilateral, NORMAL BREATHING PATTERN. absent: Accessory Muscle Use, Rales, Rhonchi, Wheezes, Respiratory Distress - Cardiovascular Exam Cardiovascular Exam: REGULAR RHYTHM, RRR, +S1, +S2 - GI/Abdominal Exam GI & Abdominal Exam: Normal Bowel Sounds, Soft. absent: Firm, Rigid, Tenderness - Extremities Exam Extremities exam: Positive for: normal inspection, pedal pulses present. Negative for: pedal edema, tenderness - Neurological Exam Neurological exam: Alert, CN II-XII Intact, Oriented x3 - Psychiatric Exam Psychiatric exam: Normal Affect, Normal Mood - Skin Skin Exam: Dry, Intact, Normal Color, Warm Results - Vital Signs Recent Vital Signs: Last Vital Signs Temp 98.2 F 08/24/18 07:58 Pulse 60 08/24/18 10:50 Resp 18 08/24/18 10:50 BP 150/66 08/24/18 10:50 Pulse Ox 96 08/24/18 10:50 - Labs Result Diagrams: 08/23/18 21:40 08/23/18 21:40 Labs: Laboratory Results - last 24 hr 08/23/18 08/23/18 08/23/18 21:40 21:40 21:40 WBC 6.5 RBC 4.67 Hgb 12.6 Hct 39.6 MCV 84.8 MCH 27.0 MCHC 31.8 RDW 14.7 H Plt Count 238 MPV 10.7 Neut % (Auto) 51.9 Lymph % (Auto) 40.5 H [place] % (Auto) 6.6 H Eos % (Auto) 0.8 L Baso % (Auto) 0.2 Lymph # (Auto) 2.6 [place] # (Auto) 0.4 Eos # (Auto) 0.1 Baso # (Auto) 0.01 Absolute Neuts (auto) 3.39 PT 11.8 INR 1.06 APTT 31.2 Sodium 135 Potassium 4.3 Chloride 98 Carbon Dioxide 27 Anion Gap 14 BUN 13 Creatinine 0.7 Est GFR ( Amer) > 60 Est GFR (Non-Af Amer) > 60 Random Glucose 96 Calcium 9.3 Total Bilirubin 0.3 AST 35 ALT < 6 L Alkaline Phosphatase 93 Troponin I < 0.01 Total Protein 7.6 Albumin 4.4 Globulin 3.2 Albumin/Globulin Ratio 1.4 Triglycerides 56 Cholesterol 189 LDL Cholesterol Direct 89 HDL Cholesterol 72 H Blood Type Blood Type Confirm Antibody Screen BBK History Checked 08/23/18 08/23/18 21:49 22:15 WBC RBC Hgb Hct MCV MCH MCHC RDW Plt Count MPV Neut % (Auto) Lymph % (Auto) [place] % (Auto) Eos % (Auto) Baso % (Auto) Lymph # (Auto) [place] # (Auto) Eos # (Auto) Baso # (Auto) Absolute Neuts (auto) PT INR APTT Sodium Potassium Chloride Carbon Dioxide Anion Gap BUN Creatinine Est GFR ( Amer) Est GFR (Non-Af Amer) Random Glucose Calcium Total Bilirubin AST ALT Alkaline Phosphatase Troponin I Total Protein Albumin Globulin Albumin/Globulin Ratio Triglycerides Cholesterol LDL Cholesterol Direct HDL Cholesterol Blood Type A POSITIVE Blood Type Confirm A POSITIVE Antibody Screen Negative BBK History Checked No verified bt Assessment & Plan - Assessment and Plan (Free Text) Assessment: -TIA -Dizziness -Sore throat -CVA with residual L sided weakness -HTN -HLD -Glaucoma -Gait dysfunction Plan: Patient admitted to [facility] for further work up. CT head revealed chronic microvascular chanegs in the periventricular white matter and basal ganglia b/l with no acute findings and mild atrophy. Brain MRI revealed severe chronic microvascular changes in the periventricular and deep white matter with no acute intracranial findings. Neurology consulted who recommended asa and lipitor. Overnight patient was a code stroke with NIHSS 2 and neurohospitalist recommended full dose ASA in the ER. Patient this AM reported presenting symptoms had resolved. Carotid u/s done 02/04/18 when patient had presented with similar complaints was unremarkable. Echo 02/04/18 was also unremarkable. Patient failed bedside swallow but on speech/swallow eval she was recommended to continue regular diet with thin liquids with routine aspiration precautions. Neuro recc to keep BP 130-140systolic and 70-80diastolic. Physical therapy on board. Patient complained of some sore throat and Cepacol has been ordered. Will maintain normotension, euthermia, and euglycemia. DVT ppx in place. HoB above 30 degrees with aspiration precautions and high fall risk. Will continue to monitor at this time. Discussed with Dr. Elizabeth Patterson PGY3 <Zbigniew Johnson S - Last Filed: 08/25/18 21:28> Results - Vital Signs Recent Vital Signs: Last Vital Signs Temp 98.4 F 08/25/18 17:36 Pulse 74 08/25/18 17:36 Resp 20 08/25/18 17:36 BP 128/65 08/25/18 17:36 Pulse Ox 98 08/25/18 17:36 - Labs Result Diagrams: 08/23/18 21:40 08/23/18 21:40 Labs: Laboratory Results - last 24 hr 08/25/18 08/25/18 08/25/18 06:20 06:20 06:20 Hemoglobin A1c 5.6 Triglycerides 44 Cholesterol 168 LDL Cholesterol Direct 84 HDL Cholesterol 57 Free T4 1.05 TSH 3rd Generation 1.75 Assessment & Plan - Assessment and Plan (Free Text) Plan: Pt seen and examined by me. I have reviewed the note of the medical billing coordinator and I agree with it. I have discussed the assessment and plan with the resident. I have reviewed the medications and the last labs. see the progress note that was dictated today.
[2018-08-24] MEDS ORDERED: Benzocaine/Menthol (Cepacol) Lozenge MT PRN (13:34)
--- NOTE | 2018-08-24 15:51 | CON ---
DATE: 08/24/2018 NEUROLOGY CONSULTATION CHIEF COMPLAINT: Possible confusion and possible left-sided facial droop. HISTORY OF PRESENT ILLNESS: This is an 87-year-old woman with a history of hypertension, hyperlipidemia, TIA, on Cardizem and valsartan who came into the ER for possible CVA. The patient's son states that he spoke to her earlier that night and she appeared began slurred speech and appeared to be confused. Son has noticed that her box that she may have taken extra dose of her antihypertensive medications. She has some questionable left facial droop. Currently no focal weakness seen on extremities. No pronator drift. No facial droop. Currently, her MRI of the brain showed no acute intracranial abnormalities, some cardiac ischemic changes. She is eating her food at bedside and talking well. PAST MEDICAL HISTORY: As above. SOCIAL HISTORY: No illicit drug, smoking or EtOH abuse. REVIEW OF SYSTEMS: A 12-point review of system is negative except as per HPI. ALLERGIES: NO KNOWN DRUG ALLERGIES. MEDICATIONS: Reviewed by nurse reconciliation sheet. LABORATORY DATA: A1c is 5.7. Sodium is 135, potassium 4.3, chloride 98, carbon dioxide 27, BUN of 13, creatinine 0.7 and random glucose of 96. PHYSICAL EXAMINATION: GENERAL: The patient is seen up in bed in no acute distress. VITAL SIGNS: Temperature of 98.2, pulse rate 60, blood pressure 150/66, respiratory rate 18, and oxygen saturation 96% on room air. HEENT: Atraumatic and normocephalic. PERRLA. Extraocular muscles intact. NECK: Supple. No JVD. No adenopathy noted. LUNGS: Clear to auscultation. No adventitious sounds. HEART: S1 and S2, normal rate and rhythm. No murmur, rubs, or gallops. ABDOMEN: Soft and nontender. Normoactive bowel sounds present. EXTREMITIES: No clubbing and no cyanosis. Peripheral pulses are 2+ bilaterally. NEUROLOGIC: Cranial nerves II through XII are intact. Motor exam; moves all extremities equally. Toes are downgoing bilaterally. Sensory exam; light touch, pinprick, proprioception and vibration are intact. DTRs are 2+ throughout. Coordination; qdicuv-ot-oman is intact. No dysmetria noted. Gait is deferred for now. IMPRESSION: Transient ischemic attack possible. RECOMMENDATIONS: 1. Aspirin 81 mg and Lipitor 40 mg . 2. Keep blood pressure 130s to 140s systolic and diastolic to 70s and 80s. 3. PT/OT evaluation and the patient is clinically stable from Neurologic standpoint. Kevin Farfan MD
[2018-08-24] MEDS ORDERED: Pneumococcal 23-Valent Vaccine IM ONE (20:53)
[2018-08-24] MEDS ORDERED: Influenza Vaccine 60 mcg/0.5 mL SYR (4YR UP) IM ONE (20:53)
[2018-08-24 21:59] VITALS: RESP 20
[2018-08-25 06:46] LABS: HDL CHOLESTEROL 57 mg/dL (29-60)
[2018-08-25 06:57] LABS: LDL CHOLESTEROL 84 mg/dL (0-129)
[2018-08-25 07:03] LABS: FREE T4 1.05 ng/dL (0.78-2.19)
--- NOTE | 2018-08-25 12:06 | DS ---
HISTORY OF PRESENT ILLNESS: The patient is an 87-year-old female who was brought into the hospital for possible CVA. The patient was thought to have a facial asymmetry. She was seen by Neurology. She had an MRI that showed chronic microvascular changes, no acute findings. She was advised to continue with aspirin. She is feeling well. She has no weakness focally in arms or the legs. I did not appreciate much facial asymmetry, she is at baseline according to what I remember from the last time I saw her in the office. The patient has no complaints of any headaches or dizziness, no nausea, no vomiting. PHYSICAL EXAMINATION: VITAL SIGNS: Temperature is 98.2, pulse of 95, blood pressure is 172/81, respirations 20 and O2 saturation is 98%. GENERAL: The patient is lying in bed, flat, comfortable. HEENT: No oral lesion. Anicteric sclerae. Moist mucosa. NECK: No JVD, adenopathy, or thyromegaly. CARDIOVASCULAR: S1 and S2, regular. No murmurs, rubs, or gallops. LUNGS: Clear to auscultation bilaterally. No wheeze, rales, or rhonchi. ABDOMEN: Bowel sounds are positive, soft, nontender and nondistended. EXTREMITIES: No cyanosis, clubbing or edema. LABORATORY DATA: TSH of 1.7. LDL is 84. ASSESSMENT: 1. Transient ischemic attack. 2. Hypertension. 3. Dyslipidemia. 4. Glaucoma. PLAN: The patient was brought in for evaluation. She has recovered fully to her baseline. She gonzalez have a history of CVA with left-sided residual weakness. She does workout in the gym 3 to 4 times per week. The patient does have supportive family with her son, who is involved. The patient on aspirin. She is going to continue with Lipitor. The patient is able to eat well. She is on her eyedrops. We will continue her eyedrops for glaucoma. I will speak to the patient's son to update him. The patient will be discharged home. She does not require physical therapy as she is at her baseline and does workout at home. CONDITION: Stable. ACTIVITIES: Increase as tolerated. Zbigniew Johnson MD
[2018-08-25 17:37] VITALS: BP 128/65; PULSE 74; TEMP 98.4; O2SAT 98
[2018-08-25] MEDS ORDERED: Dorzolamide 2%/Timolol 0.5% 100 DROP/10 ML BOTTLE OU SCH (22:00)
== END 2018-08-25 18:54 | disposition home or self-care (01) | DRG 69 ==
LOC: ED 21:14 → ERH 22:40 → 3RNO 08-24 21:44
PROVIDERS: ADMIT Internal Medicine Nephrology; ATTEND Internal Medicine Nephrology
DX: G45.9 Transient cerebral ischemic attack, unspecified (principal); I69.354 Hemiplegia and hemiparesis following cerebral infarction affecting left non-dominant side; I10 Essential (primary) hypertension; E78.5 Hyperlipidemia, unspecified; H40.9 Unspecified glaucoma; Z90.710 Acquired absence of both cervix and uterus; Z87.891 Personal history of nicotine dependence